=== PATIENT | female | born 2000 | race Two or more races ===

== ENCOUNTER 2024-03-19 20:02 | Emergency (ER) | payer SELFPAY ==
[~2024-03-19] VITALS: Ht 162.6 cm; Wt 73.0 kg
[2024-03-19 20:36] VITALS: O2SAT 99
[2024-03-19 23:55] LABS: BASOPHILS % 0.5 % (0.0-2.0); EOSINOPHILS % 0.5 % (0.0-5.0); HEMATOCRIT. 37.7 % (36.0-48.0); HEMOGLOBIN. 12.8 g/dL (12.0-16.0); LYMPHOCYTES % 18.3 % (20.0-50.0); MEAN CORPUSCULAR HEMOGLOBIN 32.7 pg (28.0-32.0); MEAN CORPUSCULAR VOLUME 96.2 fL (81.0-99.0); MEAN PLATELET VOLUME 8.2 fl (7.4-10.4); MONOCYTES % 8.1 % (2.0-8.0); NEUTROPHILS % 72.6 % (40.0-76.0); PLATELET 349 x1000/uL (130-400); RED BLOOD CELL COUNT 3.92 mill/uL (4.2-5.4); RED CELL DISTRIBUTION WIDTH 13.6 % (11.6-14.6); WHITE BLOOD COUNT 12.7 x1000/uL (4.5-11.0)
[2024-03-20 00:02] LABS: CHLORIDE 109 mEq/L (98-107); POTASSIUM 3.3 mEq/L (3.5-5.1); SODIUM 141 mEq/L (136-145)
[2024-03-20 00:03] LABS: CALCIUM 9.8 mg/dL (8.7-10.4); CARBON DIOXIDE 21 mEq/L (21-32)
[2024-03-20 00:08] LABS: CREATININE 0.8 mg/dL (0.6-1.0); GLUCOSE 127 mg/dL (70-105); UREA NITROGEN BLOOD 20 mg/dL (9-23)
[2024-03-20 00:09] LABS: ALANINE AMINOTRANSFERASE 69 IU/L (10-49); ASPARTATE AMINOTRANSFERASE 42 IU/L (<34)
[2024-03-20 00:10] LABS: ACETAMINOPHEN < 2 ug/mL (10-30); ALBUMIN 4.8 g/dL (3.2-4.8); BILIRUBIN TOTAL 0.8 mg/dL (0.1-1.0); PROTEIN TOTAL 7.8 g/dL (6.0-8.3)
[2024-03-20 00:12] LABS: HCG SCREEN NEGATIVE
[2024-03-20 00:41] LABS: ETHANOL BLOOD < 10 mg/dL (<10)
[2024-03-20 01:15] LABS: CLARITY URINE CLOUDY (CLEAR); COLOR URINE ORANGE (YELLOW); GLUCOSE URINE NEGATIVE (NEGATIVE); KETONES URINE 3+ (NEGATIVE); LEUKOCYTE ESTERASE URINE TRACE (NEGATIVE); NITRITE URINE NEGATIVE (NEGATIVE); OCCULT BLOOD URINE 3+ (NEGATIVE); PH URINE 5.5 (4.5-8.0); PROTEIN URINE 2+ (NEGATIVE); SPECIFIC GRAVITY URINE 1.036 (1.005-1.030)
[2024-03-20 01:31] LABS: *AMPHETAMINES SCREEN URINE NEGATIVE (NEGATIVE); *BARBITURATES SCREEN URINE NEGATIVE (NEGATIVE); *BENZODIAZEPINES SCREEN URINE NEGATIVE (NEGATIVE); *COCAINE SCREEN URINE NEGATIVE (NEGATIVE); CANNABINOID URINE SCREEN PRESUMPTIVE POSITIVE (NEGATIVE); ECSTASY MDMA SCREEN URINE NEGATIVE (NEGATIVE); METHADONE URINE SCREEN NEGATIVE (NEGATIVE); OPIATES URINE SCREEN NEGATIVE (NEGATIVE); PHENCYCLIDINE URINE SCREEN NEGATIVE (NEGATIVE)
[2024-03-20 02:10] LABS: BACTERIA URINE 1+; RBC URINE TNTC /hpf (0-2); SQUAMOUS EPITHELIAL CELL URINE 2+ /lpf (RARE/1+); WBC URINE TNTC /hpf (0-2)
[2024-03-20] MEDS: CEFTRIAXONE SODIUM 500MG VIAL IM ONE (05:27)
[2024-03-20] MEDS: CEPHALEXIN 250MG CAPSULE PO STA (05:27)
[2024-03-20] MEDS: HALOPERIDOL LACTATE 5MG/ML VIAL IM ONE (07:22)
[2024-03-20 09:44] VITALS: BP 119/89; PULSE 78; RESP 14; TEMP 36.61404; O2SAT 100
== END 2024-03-20 12:02 | disposition home or self-care (01) ==
LOC: ER 20:02
DX: R46.2 Strange and inexplicable behavior (principal); N39.0 Urinary tract infection, site not specified; Z20.822 Contact with and (suspected) exposure to COVID-19
CPT/HCPCS: 80053; 81025; 80307; 80329; 80320; 84703; 85025; 36415; 99285; 87426; 80305; 81003; 87086; 96372; J0696; J1630; G0480

== ENCOUNTER 2024-03-21 07:52 | Emergency (ER) | payer SELFPAY ==
[~2024-03-21] VITALS: Ht 170.2 cm; Wt 91.0 kg
[2024-03-21 07:56] VITALS: O2SAT 100
[2024-03-21 08:10] VITALS: BP 119/80; PULSE 63; RESP 18; TEMP 98.1; O2SAT 99
== END 2024-03-21 10:08 | disposition left against medical advice (07) ==
LOC: ER 07:52
DX: N93.9 Abnormal uterine and vaginal bleeding, unspecified (principal); Z53.21 Procedure and treatment not carried out due to patient leaving prior to being seen by health care provider
CPT/HCPCS: 99281